=== PATIENT | female | born 1985 | race Caucasian/White ===

== ENCOUNTER 2020-09-25 05:55 | Day surgery (SDC) | payer BC, SELFPAY ==
[2020-09-25 06:22] VITALS: BP 127/41; PULSE 80; RESP 18; TEMP 37; O2SAT 100; BMI 47.0
[2020-09-25] MEDS: Lactated Ringers 1,000 ML 100 ML IV (06:35)
[2020-09-25] MEDS: Cefazolin 2 GM in 0.9% Normal Saline 100 ML IV (07:38)
--- NOTE | 2020-09-25 07:41 | PCM.OPRPT ---
Problems Associated Problem List Diagnoses (1) Kidney stone: (2) Gross hematuria: Report of Operation Date of Procedure: 09/25/20 Pre-Operative Diagnosis: left renal stone, gross hematuria Post-Operative Diagnosis: same Surgery/Procedure Performed:: left renal extracorporal shockwave lithotripsy, cystoscopy, bilateral retrograde pyelogram Surgeon: Mae Vyas Type of Anesthesia: General Special Medications: ancef Specimen's removed: none Description of Procedure: The patient is a 35-year-old female identified as having a left renal calculus on imaging initially done for urinary tract infection. She now presents for cystoscopy with retrograde pyelograms to complete the evaluation for hematuria and left renal extracorporal shockwave lithotripsy for treatment of her left renal calculus. Informed consent was obtained. The patient was taken to the operating room and placed on the operating room table. Anesthesia monitored the head, neck, airway, IV access and vital signs throughout the case. Once anesthesia was appropriately ministered, the patient was placed into dorsal lithotomy position was prepped and draped in usual sterile fashion. The cystoscope was inserted through the urethra under direct visualization and revealed normal urethra, bladder mucosa and ureteral orifices bilaterally. The left ureteral orifice was intubated with an 8 Turkish cone-tip catheter and contrast was injected in retrograde fashion under fluoroscopic visualization. The collecting system revealed no evidence of dilation, filling defect or other abnormality. The stone was easily visualized in the upper pole. The retrograde pyelogram process was repeated on the patient's right side with same findings of no filling defects or dilation. At this time, 3000 shocks were applied to the stone in the left upper pole. The stone was well fragmented at the conclusion of the case. The patient was awakened and taken to the recovery room in good condition. There were no complications during this procedure. Grafts/Implants Used: none Complications none Admit VTE Documentation VTE Present on Admission: Yes VTE Mechan Device Prophylaxis: SCD's VTE Pharm Prophylaxis ordered?: No Reason prophylaxis not ordered:: Treatment Not Indicated
--- NOTE | 2020-09-25 07:43 | PCM.DC ---
Discharge Instructions Diet Discharge Diet: No restrictions Activity Discharge Activity: Return to Normal Activity Dressing / Incision Call your doctor if you observe: Fever of 101 or Higher, Inability to urinate, Inability to have a bowel movement, Calf discomfort and Uncontrolled pain Follow Up Care Please Follow Up With: Mae Vyas MD When: in 2-3 weeks with renal ultrasound Test Results: Test results from this visit will be discussed in further detail at your follow-up appointment, if applicable. Discharge Plan Admission Attending Provider: Mae Vyas Primary Care Provider: Care PhysicianMegan Primary Discharge Orders/Prescriptions Prescriptions: New hydrocodone-acetaminophen [hydrocodone-acetaminophen] 1 TABLET tablet 2 tab PO Q8H PRN (Reason: Pain) 7 Days Qty: 20 RF: 0 phenazopyridine [Pyridium] 200 MG tablet 200 mg PO TID PRN PRN (Reason: Bladder Spasms) 7 Days Qty: 30 RF: 0 ondansetron HCl [ondansetron HCl] 8 MG tablet 8 mg PO Q8H PRN PRN (Reason: Nausea) 7 Days Qty: 20 RF: 0 Continued Lo Loestrin Fe 1 mg-10 mcg (24)/10 mcg (2) tablet 1 tab PO DAILY RF: 0 d-mannose 500 mg Capsule 1,300 mg PO DAILY RF: 0 cephalexin 500 mg capsule 500 mg PO BID RF: 0 Referrals / Follow Up: Care Physician,Megan Primary [Primary Care Provider] - Disposition Disposition (needs filled in before D/C Order can be placed): Home, Self Care
[2020-09-25 08:51] VITALS: BP 127/41; BP 128/82; PULSE 80; RESP 16; TEMP 36; O2SAT 93
[2020-09-25 09:00] VITALS: BP 127/41; BP 132/77; PULSE 63; RESP 16; O2SAT 100
[2020-09-25 09:15] VITALS: BP 127/41; BP 128/78; PULSE 70; RESP 16; O2SAT 100
[2020-09-25 09:28] VITALS: BP 127/41; BP 128/78; PULSE 70; RESP 16; TEMP 35.7; O2SAT 100
[2020-09-25] MEDS: Acetaminophen 325 MG Tablet PO (10:30)
[2020-09-25] MEDS: oxyCODONE 5 MG Tablet PO (10:30)
[2020-09-25 10:47] VITALS: BP 127/41; BP 127/80; PULSE 58; RESP 18; TEMP 36.3; O2SAT 100
== END 2020-09-25 11:12 | disposition home or self-care (01) ==
LOC: SDC 05:55 → AC 05:57
PROVIDERS: Referring Provider Urology; Visit Provider Urology
PROC: (CPT 50590; principal; 2020-09-25 07:20)
PROC: (CPT 52332; 2020-09-25 07:20)
DX: N20.0 Calculus of kidney (principal); R31.0 Gross hematuria; N39.0 Urinary tract infection, site not specified; R39.15 Urgency of urination; Z79.899 Other long term (current) drug therapy
CPT/HCPCS: 00873; 50590; 52005; J7120; J2405

== ENCOUNTER 2020-11-12 09:52 | Day surgery (SDC) | payer BC, SELFPAY ==
[2020-11-12 10:27] VITALS: BP 142/96; PULSE 82; RESP 16; TEMP 36.8; O2SAT 100; BMI 47.0
[2020-11-12] MEDS: Lactated Ringers 1,000 ML 100 ML IV (10:40)
--- NOTE | 2020-11-12 11:45 | FLU_PTH ---
PATIENT: NAV LECHUGA LOC: [facility] [place] U#:[id number] AGE/SX: 35/F ROOM: RE11/12/[address]: Dr. Mae Vyas MD : 1985 BED: DIS: 11/12/2020 SPEC #: [id number] RECD: 11/12/20 13:27 STATUS: FRANKLYN GOYAL #: [id number] MOJGAN: 11/12/20 11:[address]: Mae Vyas DEPT: CYTOLOGY RECD BY: Blanca August ENTERED: 11/13/20 12:40 SP TYPE: Fluid OTHR DR: No Primary Care Phys Tissues: A - Pelvis, NOS B - Pelvis, NOS Procedures: Special Stain Group II Surgery Specimen Level III Surgery Specimen Level IV Cytospin Fluid HEADER OPERATION: Cysto, ureteroscopy, laser, stent PRE-OP DIAGNOSIS: Urge incontinence, calculi of kidney TISSUE SUBMITTED: A ? Renal pelvic washings, B ? Bladder washings status post stent DIAGNOSIS CYTOLOGY A. Renal pelvic washing fluid (cytospin and cell block): Acellular specimen. B. Bladder washings fluid (cytospin and cell block): Paucicellular specimen, negative for malignant cells. See comment. MARIA TERESA:cecilio 11/14/2020 COMMENT Clinical correlation and appropriate follow up are necessary. CYTOLOGY STUDY Slides are reviewed. CYTOLOGY GROSS A - Received is 4 ml of clear fluid labeled with the patient's name and and designated per the requisition as renal pelvic washings. Submitted for cytology preparation including cell block. B - Received is 10 ml of light pink clear fluid labeled with the patient's name and and designated per the requisition as bladder washings. Submitted for cytology preparation including cell block. / cecilio 11/13/2020 TC:5 CPT: 61560 x2, 22351 x2
--- NOTE | 2020-11-12 12:05 | OP.PCM_ITS ---
Problems Associated Problem List Diagnoses (1) Kidney stone: (2) Gross hematuria: Report of Operation Date of Procedure: 11/12/20 Pre-Operative Diagnosis: left renal calculus Post-Operative Diagnosis: same, passed, ureteral mucosal lesions Surgery/Procedure Performed:: cystoscopy, left ureteroscopy, laser of left ureteral lesions, left ureteral stent insertion Surgeon: Mae Vyas Type of Anesthesia: General Specimen's removed: ureteral and bladder fluid for cytologic evaluation Description of Procedure: The patient is a 35-year-old female who is status post extracorporal shockwave lithotripsy of a left renal calculus. The stone remained on postoperative imaging and she now presents for ureteroscopy and laser lithotripsy. Informed consent was obtained. The patient was taken to the operating room and placed on the operating room table. Anesthesia monitored the head, neck, airway, IV access and vital signs throughout the case. Once anesthesia was apparently administered the patient was placed into dorsal lithotomy was prepped and draped in usual sterile fashion. The cystoscope was then inserted through the urethra under direct visualization into the urinary bladder. Bladder and urethral mucosa's were normal without any abnormality. At this time the left ureteral orifice was intubated with 2 separate 0.035 glide wires. Under fluoroscopic visualization, a ureteral reaccessed sheath was then placed without difficulty. The flexible ureteroscope was then inserted through the sheath and into the proximal ureter. The patient had 5 cystic lesions identified in the ureteral mucosa and renal pelvis. These did not appear papillary, rather they were cystic in origin not bleeding or with increased vascularity. They were not connected, and the largest appeared to be 3 mm in diameter. Each calyx was then directly visualized. The openings to the calyces were all very small but did accommodate the ureteroscope. 1 stone fragment approximately 1 to 2 mm in size was seen in the upper pole. It was flushed out of the calyx and never seen after this. No other stone fragments were identified. At this time a 200 ?m laser fiber was used to obliterate the cystic lesions. Sterile saline was then used to flush the renal pelvis and proximal ureter and the fluid was sent for evaluation. The ureteral access sheath was then removed under direct visualization and there was no identification of any injury to the ureter. At this time the safety wire was used to place a 6 Armenian 24 cm double-J stent curled in the renal pelvis as well as the urinary bladder. After this was done, another cytologic specimen was sent for evaluation from the bladder. The patient's bladder was then emptied and the case was terminated. She was awakened and taken to recovery room in good condition. There were no complications during this procedure. Grafts/Implants Used: 6x24 JJ stent Complications none Admit VTE Documentation VTE Present on Admission: Yes VTE Mechan Device Prophylaxis: SCD's VTE Pharm Prophylaxis ordered?: No Reason prophylaxis not ordered:: Treatment Not Indicated
--- NOTE | 2020-11-12 12:07 | PCM.DC ---
Discharge Instructions Diet Discharge Diet: No restrictions Activity Discharge Activity: Return to Normal Activity May resume sexual activity in: 1-2 weeks Dressing / Incision Call your doctor if you observe: Fever of 101 or Higher, Inability to urinate, Inability to have a bowel movement, Calf discomfort and Uncontrolled pain Follow Up Care Please Follow Up With: Mae Vyas MD When: next week, call for appt Test Results: Test results from this visit will be discussed in further detail at your follow-up appointment, if applicable. Discharge Plan Admission Attending Provider: Mae Vyas Primary Care Provider: Megan Benson Primary Discharge Orders/Prescriptions Prescriptions: New oxycodone-acetaminophen [oxycodone-acetaminophen] 1 TABLET tablet 2 tab PO Q8H PRN PRN (Reason: Pain) 7 Days Qty: 20 RF: 0 phenazopyridine [Pyridium] 200 MG tablet 200 mg PO TID PRN PRN (Reason: Bladder Spasms) 7 Days Qty: 30 RF: 0 Continued Lo Loestrin Fe 1 mg-10 mcg (24)/10 mcg (2) tablet 1 tab PO DAILY RF: 0 d-mannose 500 mg Capsule 1,300 mg PO DAILY RF: 0 Culturelle 10 billion cell Capsule 1 cap PO DAILY RF: 0 nitrofurantoin monohyd/m-cryst 100 mg capsule 100 mg PO BID RF: 0 Metamucil 3.4 gram/5.4 gram Powder 1 tbsp PO DAILY RF: 0 Referrals / Follow Up: Care Physician,Megan Primary [Primary Care Provider] - Disposition Disposition (needs filled in before D/C Order can be placed): Home, Self Care
[2020-11-12 13:01] VITALS: BP 127/81; BP 142/96; PULSE 79; RESP 16; TEMP 36.3; O2SAT 98
[2020-11-12 13:15] VITALS: BP 124/74; BP 142/96; PULSE 73; RESP 16; O2SAT 99
[2020-11-12 13:19] VITALS: BP 125/74; BP 142/96; PULSE 73; RESP 16; O2SAT 99
[2020-11-12 13:29] VITALS: BP 117/81; BP 142/96; PULSE 70; RESP 16; TEMP 36.7; O2SAT 99
[2020-11-12 14:31] VITALS: BP 114/76; BP 142/96; PULSE 69; RESP 16; TEMP 37.2; O2SAT 100
== END 2020-11-12 14:35 | disposition home or self-care (01) ==
LOC: SDC 09:52 → AC 09:53
PROVIDERS: Referring Provider Urology; Visit Provider Urology
PROC: 0TJ98ZZ Inspection of Ureter, Via Natural or Artificial Opening Endoscopic (ICD-10-PCS; CPT 52352; principal; 2020-11-12 11:35)
DX: N20.0 Calculus of kidney (principal); N28.89 Other specified disorders of kidney and ureter; R31.0 Gross hematuria; R39.15 Urgency of urination
CPT/HCPCS: 52224; 52332; 76000; 88108; 88304; 88305; 88313; J7120; C2617; J2405